=== PATIENT | male | born 1955 | race Caucasian/White ===

== ENCOUNTER 2017-05-02 09:56 | Emergency (ER) | payer OTHER ==
--- NOTE | 2017-05-02 12:56 | DIAGNOSTIC IMAGING REPORT ---
PROCEDURE: XR LUMBAR SPINE 2 OR 3 VIEWS INDICATION: LOWER BACK PAIN TECHNIQUE: Three views. COMPARISON: None. FINDINGS: Osseous structures and disc spaces are normal. No evidence of an acute process or fracture. IMPRESSION: 1. Negative lumbar spine.
--- NOTE | 2017-05-02 13:41 | ED ORDER SUMMARY ---
..... Patient: RM NORTH OrderSheet [facility] VisitID: [id number] [place] [address] 62y, M Registration Date/Time: 05/02/2017 ORDER SHEET Weight: 86.1 kg (stated) Allergies: No Known Drug Allergy GENERAL ORDERS: Lumbar Spine 2 or 3V Urgent (10:57 05/02/2017 Kol[place] CRAIN) (Ack 10:58 ARernandez) (14:14 Jayce R.N.) MEDICATION ORDERS: IV FLUIDS: Dilaudid IV 0.5 mg (HIGH ALERT MEDICATION, NOW) (10:57 05/02/2017 [place] CRAIN) (11:36 Michael R.N.) Valium IV 2 mg (HIGH ALERT MEDICATION, NOW) (13:58 05/02/2017 [place] CRAIN) (Ack 14:00 ASchmuck) (14:04 ASchmuck) Toradol IV 30 mg (NOW) (14:44 05/02/2017 [place] CRAIN) (14:59 Jayce R.N.) Valium IV 2 mg (HIGH ALERT MEDICATION, NOW) (14:44 05/02/2017 Kolby CRAIN) (14:59 Jayce R.N.) ORDER SHEET NOTES: [Electronically signed by Almas Reed R.N. (16:39 05/02/2017)] [Electronically signed by Jared Murillo MD (13:12 05/03/2017)] [Electronically locked/signed by Almas Reed R.N. (16:39 05/02/2017)]
--- NOTE | 2017-05-02 13:41 | ED CLINICAL REPORT ---
Clinical Report - Physicians/Mid Levels [facility] [address] [place] [address] 05/02/2017 9:56 [id number] Time Seen: 09:58. Arrived- By private vehicle. Historian- patient. HISTORY OF PRESENT ILLNESS Chief Complaint: BACK PAIN. It is described as being severe and in the area of the mid lumbar spine and lower lumbar spine. The quality is noted to be "pain" and similar to prior episodes. No radiation. Onset- several days ago and it is still present. It was abrupt in onset and has been constant. No bladder dysfunction, bowel dysfunction, sensory loss or motor loss. Patient notes the possibility of an injury. 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 Similar symptoms previously: Several times. REVIEW OF SYSTEMS No chills, fever, sweats, calf pain or chest pain. No cough, difficulty breathing, pedal edema, palpitations or abdominal pain. No constipation, diarrhea, nausea, vomiting or urinary problems. All systems otherwise negative, except as recorded above. PAST HISTORY Problems: A-Fib. Chronic Back Pain. Back Injury. Additional Surgeries: Appendectomy. Rotator Cuff Surgery. Medications: Atenolol Oral. Allergies: No Known Drug Allergy. SOCIAL HISTORY Never smoker. No alcohol use or drug use. He lives with spouse. FAMILY HISTORY Denies family medical history. ADDITIONAL NOTES The nursing notes have been reviewed. PHYSICAL EXAM Vital Signs: 05/02/2017 09:58 BP: 118/79. HR: 112. RR: 20. O2 saturation: 98%. Temp: 98.2 F. Pain level now: 0/10. Have been reviewed. Appearance: Alert. Eyes: Pupils equal, round and reactive to light. Neck: Normal inspection. Neck nontender. Painless ROM. CVS: Heart sounds normal. Respiratory: No respiratory distress. Breath sounds normal. Abdomen: No visible injury. Soft and nontender. Bowel sounds normal. No organomegaly. No mass. Back: Muscle spasm of the back. Severely limited ROM in the back- in the lumbar spine: decreased flexion, extension, right lateral bending, left lateral bending and rotation to the right and left. No vertebral point tenderness or soft tissue tenderness. Skin: Skin warm and dry. Normal skin color. Normal skin turgor. Extremities: Extremities exhibit normal ROM. No calf tenderness. Neuro: No motor deficit. No sensory deficit. LABS, X-RAYS, AND EKG X-Rays: LS spine series negative. PROGRESS AND PROCEDURES Discussed case with patient's primary care provider, (Dr. Ny at [facility]). Reviewed test results and need for additional work-up. Health care provider will see patient in office. Patient/family counseled. Old medical records reviewed. Disposition: Discharged. Condition: stable. CLINICAL IMPRESSION Acute lumbar strain. INSTRUCTIONS Apply ice. Don't apply ice directly to skin and don't use while asleep. No driving or operating machinery while taking sedating medication. Sedative medication was given during your visit. No lifting greater than 5 lbs, no bending or stooping or no prolonged sitting. Do not work until released. Warnings: GENERAL WARNINGS: Return or contact your physician immediately if your condition worsens or changes unexpectedly, if not improving as expected, or if other problems arise. Your Current Medications: CONTINUE TAKING THE FOLLOWING MEDICATIONS: Atenolol Oral. Prescription Medications: Hydrocodone/APAP 5mg/325mg: take 1 to 2 orally every 6 hours as needed for pain. Dispense fifteen (15). No refills. Ibuprofen 600mg tablets: take 1 tablet orally every 8 hours as needed for pain. Dispense thirty (30). No refills. Follow-up: Follow up with your doctor Friday in three days. Call for the next available appointment. Understanding of the discharge instructions verbalized by patient and family. (Electronically signed by Jared Murillo MD 05/03/2017 13:12)
--- NOTE | 2017-05-02 13:41 | ED NURSING NOTES ---
Clinical Report - Nurses [facility] [address] [place] [address] 05/02/2017 9:56 Patient: RM NORTH TRIAGE Triage time 09:55. Acuity: LEVEL 4. Chief Complaint: (Severe low back pain. Distant hx of back injury. Today he c/o 10/10 low back pain, unable to walk. He has spent the past 24 hours on the floor due to the pain that started 3 days ago.). SEPSIS SCREEN: Sepsis Screen. Negative (no infection suspected/documented). DANNA COMA SCORE: [place] Coma Scale: 15- eyes open spontaneously (4); best verbal response- oriented x 4 (5); best motor response- obeys commands (6). --10:07 Almas Reed R.N. 09:58 05/02/17. BP: 118/79 (regular adult cuff) taken on the left arm, while lying. HR: 112 (irregular). RR: 20. O2 saturation: 98% on room air. Temp: 98.2 F (oral). Pain level now: 0/10. --10:07 Almas Reed R.N. Weight: 86.1 kg stated. Height/Length: 68 inches Per Patient. BMI: 28.9. --10:05 Almas Reed R.N. Medications Atenolol Oral. --10:03 Almas Reed R.N. Allergies No Known Drug Allergy. --10:03 Almas Reed R.N. History Arrived by EMS, and ([facility]). Historian: EMS, patient and family. Treatment [employer]: (Fentanyl 100mcg @1025 today, IV SL). SOCIAL HX: Never smoker. No alcohol use or drug use. ABUSE ASSESSMENT: No report of abuse. --10:07 Almas Reed R.N. PROBLEMS: A-Fib. Chronic Back Pain. Back Injury. --10:05 Almas Reed R.N. ADDITIONAL SURGERIES: Appendectomy. Rotator Cuff Surgery. --10:05 Almas Reed R.N. Interventions To treatment room. --10:07 Almas Reed R.N. PHYSICAL ASSESSMENT To room via stretcher. ( limited AROM in his back and legs due to the LBP. Pt reports that he also had pain radiating into his left leg yesterday when he was walking.). GENERAL / NEURO / PSYCH: Alert. Oriented X 4. Appears in no acute distress. HEENT: Pupils equal, round and reactive to light. No facial asymmetry noted. Mucous membranes are pink. RESPIRATORY: Respirations not labored. Chest nontender. Breath sounds within normal limits. CVS: ( irregular HR (hx A-Fib)). Capillary refill less than 2 seconds. Pulses within normal limits. GI / : Abdomen soft and nontender and normal bowel sounds. SKIN: Skin is warm and dry. Normal skin turgor. --10:09 Almas Reed R.N. NURSING PROGRESS NOTES Head of bed elevated (Flat per pt request). Reassurance given. Two patient identifiers checked. Call light placed in reach. Side rails up x 2. Bed placed in lowest position. Brakes of bed on. Patient ready for evaluation- chart flagged. ( Pt's at the bedside). --10:09 Almas Reed R.N. 09:57 05/02/2017 Site #1 started prior to arrival by EMS via IV in the right antecubital space with an 18g angiocath. Saline lock flushed with 10 mL saline. --11:34 Almas Reed R.N. 11:31 05/02/2017 Dilaudid (HYDROmorphone HCl PF) IVP 0.5 mg given over 1 minute(s) via site #1. Allergies verified, confirmed 5 rights and sedative warning given to the patient and patient's family. IV patency established. IV site checked: no pain, redness, or swelling. IV flushed thoroughly pre- and post-medication administration. IVP given by RN. --11:36 Nati Leach R.N. 10:30 05/02/17. BP: 110/66. HR: 95. RR: 16. O2 saturation: 97% on room air. --13:41 Almas Reed R.N. 11:00 05/02/17. BP: 116/75. HR: 98. RR: 16. O2 saturation: 97% on room air. --13:41 Almas Reed R.N. 11:30 05/02/17. BP: 122/79. HR: 88. RR: 20. O2 saturation: 95% on room air. --13:42 Almas Reed R.N. 12:00 05/02/17. BP: 120/67. HR: 99. RR: 16. O2 saturation: 96% on room air. --13:43 Almas Reed R.N. 12:30 05/02/17. BP: 117/81. HR: 86. RR: 16. O2 saturation: 98% on room air. --13:43 Almas Reed R.N. 13:00 05/02/17. BP: 124/80. HR: 85. RR: 16. O2 saturation: 97% on room air. --13:44 Almas Reed R.N. 12:00 05/02/2017 Dilaudid IVP Response: no adverse reaction pain is improving. --16:38 Almas Reed R.N. 14:04 05/02/2017 Valium (Diazepam) IVP 2 mg given over 30 second(s) via site #1. Allergies verified, confirmed 5 rights and sedative warning given to the patient. IV patency established. IV site checked: no pain, redness, or swelling. IV flushed thoroughly pre- and post-medication administration. IVP given by RN. --14:04 Marilu Sol 14:30 05/02/2017 Valium IVP Response: no adverse reaction symptoms are the same. --16:38 Almas Reed R.N. 14:55 05/02/2017 Toradol IVP 30 mg given over 1 minute(s) via site #1. Allergies verified and confirmed 5 rights. IV patency established. IV site checked: no pain, redness, or swelling. IV flushed thoroughly pre- and post-medication administration. IVP given by RN. --14:59 Almas Reed R.N. 14:55 05/02/2017 Valium (Diazepam) IVP 2 mg given over 1 minute(s) via site #1. Allergies verified, confirmed 5 rights and sedative warning given to the patient. IV patency established. IV site checked: no pain, redness, or swelling. IV flushed thoroughly pre- and post-medication administration. IVP given by RN. --14:59 Almas Reed R.N. 15:30 05/02/2017 Toradol IVP Response: no adverse reaction pain is improving. Symptoms have improved the patient feels better. --16:38 Almas Reed R.N. 15:30 05/02/2017 Valium IVP Response: no adverse reaction pain is improving. Symptoms have improved the patient feels better. --16:38 Almas Reed R.N. DISPOSITION / DISCHARGE 16:03 05/02/2017 Site #1 removed upon discharge. Bandage applied. --16:37 Almas Reed R.N. Departure time: 1605. Condition at departure: improved and stable. No learning barriers present. Discharge instructions provided and reviewed with the patient. Reviewed warnings. Reviewed medication(s). Treatments reviewed. Reviewed referrals. Patient verbalized understanding. Written instructions provided in [place]. The patient was discharged by the physician. He was discharged home and accompanied by spouse. He left the Emergency Department ambulatory and via private vehicle. Spouse driving. --16:37 Almas Reed R.N. 15:45 05/02/17. BP: 107/71. HR: 75. RR: 16. O2 saturation: 100% on room air. Temp: 97.9 F (oral). Pain level now: 11/29. --16:37 Almas Reed R.N. Locked/Released at 05/02/2017 16:39 by Almas Reed R.N.
--- NOTE | 2017-05-02 13:41 | ED ORDER SUMMARY ---
..... Patient: RM NORTH OrderSheet [facility] VisitID: [id number] [place] [address] 62y, M Registration Date/Time: 05/02/2017 ORDER SHEET Weight: 86.1 kg (stated) Allergies: No Known Drug Allergy GENERAL ORDERS: Lumbar Spine 2 or 3V Urgent (10:57 05/02/2017 Kolby CRAIN) (Ack 10:58 AKernandez) (14:14 Jayce R.N.) MEDICATION ORDERS: IV FLUIDS: Dilaudid IV 0.5 mg (HIGH ALERT MEDICATION, NOW) (10:57 05/02/2017 Kol[place] CRAIN) (11:36 Michael R.N.) Valium IV 2 mg (HIGH ALERT MEDICATION, NOW) (13:58 05/02/2017 [place] CRAIN) (Ack 14:00 ASchmuck) (14:04 ASchmuck) Toradol IV 30 mg (NOW) (14:44 05/02/2017 [place] CRAIN) (14:59 Jayce R.N.) Valium IV 2 mg (HIGH ALERT MEDICATION, NOW) (14:44 05/02/2017 Kol[place] CRAIN) (14:59 Jayce R.N.) ORDER SHEET NOTES: [Electronically signed by Almas Reed R.N. (16:39 05/02/2017)] [Electronically signed by Jared Murillo MD (13:12 05/03/2017)] [Electronically locked/signed by Almas Reed R.N. (16:39 05/02/2017)]
--- NOTE | 2017-05-02 13:41 | ED CLINICAL REPORT ---
Clinical Report - Physicians/Mid Levels [facility] [address] [place] [address] 05/02/2017 9:56 [id number] Time Seen: 09:58. Arrived- By private vehicle. Historian- patient. HISTORY OF PRESENT ILLNESS Chief Complaint: BACK PAIN. It is described as being severe and in the area of the mid lumbar spine and lower lumbar spine. The quality is noted to be "pain" and similar to prior episodes. No radiation. Onset- several days ago and it is still present. It was abrupt in onset and has been constant. No bladder dysfunction, bowel dysfunction, sensory loss or motor loss. Patient notes the possibility of an injury. 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 Similar symptoms previously: Several times. REVIEW OF SYSTEMS No chills, fever, sweats, calf pain or chest pain. No cough, difficulty breathing, pedal edema, palpitations or abdominal pain. No constipation, diarrhea, nausea, vomiting or urinary problems. All systems otherwise negative, except as recorded above. PAST HISTORY Problems: A-Fib. Chronic Back Pain. Back Injury. Additional Surgeries: Appendectomy. Rotator Cuff Surgery. Medications: Atenolol Oral. Allergies: No Known Drug Allergy. SOCIAL HISTORY Never smoker. No alcohol use or drug use. He lives with spouse. FAMILY HISTORY Denies family medical history. ADDITIONAL NOTES The nursing notes have been reviewed. PHYSICAL EXAM Vital Signs: 05/02/2017 09:58 BP: 118/79. HR: 112. RR: 20. O2 saturation: 98%. Temp: 98.2 F. Pain level now: 0/10. Have been reviewed. Appearance: Alert. Eyes: Pupils equal, round and reactive to light. Neck: Normal inspection. Neck nontender. Painless ROM. CVS: Heart sounds normal. Respiratory: No respiratory distress. Breath sounds normal. Abdomen: No visible injury. Soft and nontender. Bowel sounds normal. No organomegaly. No mass. Back: Muscle spasm of the back. Severely limited ROM in the back- in the lumbar spine: decreased flexion, extension, right lateral bending, left lateral bending and rotation to the right and left. No vertebral point tenderness or soft tissue tenderness. Skin: Skin warm and dry. Normal skin color. Normal skin turgor. Extremities: Extremities exhibit normal ROM. No calf tenderness. Neuro: No motor deficit. No sensory deficit. LABS, X-RAYS, AND EKG X-Rays: LS spine series negative. PROGRESS AND PROCEDURES Discussed case with patient's primary care provider, (Dr. Ny at [facility]). Reviewed test results and need for additional work-up. Health care provider will see patient in office. Patient/family counseled. Old medical records reviewed. Disposition: Discharged. Condition: stable. CLINICAL IMPRESSION Acute lumbar strain. INSTRUCTIONS Apply ice. Don't apply ice directly to skin and don't use while asleep. No driving or operating machinery while taking sedating medication. Sedative medication was given during your visit. No lifting greater than 5 lbs, no bending or stooping or no prolonged sitting. Do not work until released. Warnings: GENERAL WARNINGS: Return or contact your physician immediately if your condition worsens or changes unexpectedly, if not improving as expected, or if other problems arise. Your Current Medications: CONTINUE TAKING THE FOLLOWING MEDICATIONS: Atenolol Oral. Prescription Medications: Hydrocodone/APAP 5mg/325mg: take 1 to 2 orally every 6 hours as needed for pain. Dispense fifteen (15). No refills. Ibuprofen 600mg tablets: take 1 tablet orally every 8 hours as needed for pain. Dispense thirty (30). No refills. Follow-up: Follow up with your doctor Friday in three days. Call for the next available appointment. Understanding of the discharge instructions verbalized by patient and family. (Electronically signed by Jared Murillo MD 05/03/2017 13:12)
--- NOTE | 2017-05-03 13:12 | ED MED RECONCILIATION SUMMARY ---
Patient: RM NORTH Medication Reconciliation Report [facility] VisitID: [id number] [address] [place] [address] 62y, M Registration Date/Time: 05/02/2017 Weight: 86.1 kg Height/Length: 68 in. BMI: 28.9 ALLERGIES: No Known Drug Allergy The patient's Home Medications are listed below: CONTINUE TAKING THE FOLLOWING MEDICATIONS: Atenolol Oral The source(s) of the original Home Medication information: Not obtained. The following Medications were given to the patient in the Emergency Department: Dilaudid [IVP] IVP 0.5 mg, administered: 05/02/2017 11:31:00 AM Valium [IVP] IVP 2 mg, administered: 05/02/2017 2:04:00 PM Toradol [IVP] IVP 30 mg, administered: 05/02/2017 2:55:00 PM Valium [IVP] IVP 2 mg, administered: 05/02/2017 2:55:00 PM The following Medications were prescribed to the patient: Hydrocodone/APAP 5mg/325mg: take 1 to 2 orally every 6 hours as needed for pain. Dispense fifteen (15). No refills. -- Jared Murillo MD Ibuprofen 600mg tablets: take 1 tablet orally every 8 hours as needed for pain. Dispense thirty (30). No refills. -- Jared Murillo MD
--- NOTE | 2017-05-03 13:12 | ED MED RECONCILIATION SUMMARY ---
Patient: RM NORTH Medication Reconciliation Report [facility] VisitID: [id number] [address] [place] [place] [address] 62y, M Registration Date/Time: 05/02/2017 Weight: 86.1 kg Height/Length: 68 in. BMI: 28.9 ALLERGIES: No Known Drug Allergy The patient's Home Medications are listed below: CONTINUE TAKING THE FOLLOWING MEDICATIONS: Atenolol Oral The source(s) of the original Home Medication information: Not obtained. The following Medications were given to the patient in the Emergency Department: Dilaudid [IVP] IVP 0.5 mg, administered: 05/02/2017 11:31:00 AM Valium [IVP] IVP 2 mg, administered: 05/02/2017 2:04:00 PM Toradol [IVP] IVP 30 mg, administered: 05/02/2017 2:55:00 PM Valium [IVP] IVP 2 mg, administered: 05/02/2017 2:55:00 PM The following Medications were prescribed to the patient: Hydrocodone/APAP 5mg/325mg: take 1 to 2 orally every 6 hours as needed for pain. Dispense fifteen (15). No refills. -- Jared Murillo MD Ibuprofen 600mg tablets: take 1 tablet orally every 8 hours as needed for pain. Dispense thirty (30). No refills. -- Jared Murillo MD
--- NOTE | 2017-05-03 13:12 | ED DISCHARGE INSTRUCTIONS ---
Patient: RM NORTH General Instructions [facility] VisitID: [id number] [place] [address] 62y, M Registration Date/Time: 05/02/2017 Acute lumbar strain. INSTRUCTIONS Apply ice. Don't apply ice directly to skin and don't use while asleep. No driving or operating machinery while taking sedating medication. Sedative medication was given during your visit. No lifting greater than 5 lbs, no bending or stooping or no prolonged sitting. Do not work until released. Warnings: GENERAL WARNINGS: Return or contact your physician immediately if your condition worsens or changes unexpectedly, if not improving as expected, or if other problems arise. Your Current Medications: CONTINUE TAKING THE FOLLOWING MEDICATIONS: Atenolol Oral. Prescription Medications: Hydrocodone/APAP 5mg/325mg: take 1 to 2 orally every 6 hours as needed for pain. Dispense fifteen (15). No refills. Ibuprofen 600mg tablets: take 1 tablet orally every 8 hours as needed for pain. Dispense thirty (30). No refills. Follow-up: Follow up with your doctor Friday in three days. Call for the next available appointment. Understanding of the discharge instructions verbalized by patient and family. ADDITIONAL INFORMATION Back Pain [Acute Or Chronic] Back pain is usually caused by an injury to the muscles or ligaments of the spine. Sometimes the disks that separate each bone in the spine may bulge and cause pain by pressing on a nearby nerve. Back pain may also appear after a sudden twisting/bending force (such as in a car accident), after a simple awkward movement, or lifting something heavy with poor body positioning. In either case, muscle spasm is often present and adds to the pain. Acute back pain usually gets better in one to two weeks. Back pain related to disk disease, arthritis in the spinal joints or spinal stenosis (narrowing of the spinal canal) can become chronic and last for months or years. Unless you had a physical injury (for example, a car accident or fall) X-rays are usually not ordered for the initial evaluation of back pain. If pain continues and does not respond to medical treatment, x-rays and other tests may be performed at a later time. Home Care: You may need to stay in bed the first few days. But, as soon as possible, begin sitting or walking to avoid problems with prolonged bed rest (muscle weakness, worsening back stiffness and pain, blood clots in the legs). When in bed, try to find a position of comfort. A firm mattress is best. Try lying flat on your back with pillows under your knees. You can also try lying on your side with your knees bent up towards your chest and a pillow between your knees. Avoid prolonged sitting. This puts more stress on the lower back than standing or walking. During the first two days after injury, apply an ICE PACK to the painful area for 20 minutes every 2-4 hours. This will reduce swelling and pain. HEAT (hot shower, hot bath or heating pad) works well for muscle spasm. You can start with ice, then switch to heat after two days. Some patients feel best alternating ice and heat treatments. Use the one method that feels the best to you. You may use acetaminophen (Tylenol) or ibuprofen (Motrin, Advil) to control pain, unless another pain medicine was prescribed. [NOTE: If you have chronic liver or kidney disease or ever had a stomach ulcer or GI bleeding, talk with your doctor before using these medicines.] Be aware of safe lifting methods and do not lift anything over 15 pounds until all the pain is gone. Follow Up with your doctor or this facility if your symptoms do not start to improve after one week. Physical therapy may be needed. [NOTE: If X-rays were taken, they will be reviewed by a radiologist. You will be notified of any new findings that may affect your care.] Get Prompt Medical Attention if any of the following occur: Pain becomes worse or spreads to your legs Weakness or numbness in one or both legs Loss of bowel or bladder control Numbness in the groin or genital area Hydrocodone Bitartrate, Acetaminophen Oral tablet What is this medicine? ACETAMINOPHEN; HYDROCODONE (a set a SABRINA martha fen; sanjay droe KOE done) is a pain reliever. It is used to treat mild to moderate pain. How should I use this medicine? Take this medicine by mouth. Swallow it with a full glass of water. Follow the directions on the prescription label. If the medicine upsets your stomach, take the medicine with food or milk. Do not take more than you are told to take. Talk to your cargo station worker regarding the use of this medicine in children. This medicine is not approved for use in children. What side effects may I notice from receiving this medicine? Side effects that you should report to your doctor or health director of primary care as soon as possible: allergic reactions like skin rash, itching or hives, swelling of the face, lips, or tongue breathing problems confusion feeling faint or lightheaded, falls stomach pain yellowing of the eyes or skin Side effects that usually do not require medical attention (report to your doctor or health director of primary care if they continue or are bothersome): nausea, vomiting stomach upset What may interact with this medicine? alcohol antihistamines isoniazid medicines for depression, anxiety, or psychotic disturbances medicines for sleep muscle relaxants naltrexone narcotic medicines (opiates) for pain phenobarbital ritonavir tramadol What if I miss a dose? If you miss a dose, take it as soon as you can. If it is almost time for your next dose, take only that dose. Do not take double or extra doses. Where should I keep my medicine? Keep out of the reach of children. This medicine can be abused. Keep your medicine in a safe place to protect it from theft. Do not share this medicine with anyone. Selling or giving away this medicine is dangerous and against the law. Store at room temperature between 15 and 30 degrees C (59 and 86 degrees F). Protect from light. Keep container tightly closed. Throw away any unused medicine after the expiration date. Discard unused medicine and used packaging carefully. Pets and children can be harmed if they find used or lost packages. What should I tell my health care provider before I take this medicine? They need to know if you have any of these conditions: brain tumor Crohn's disease, inflammatory bowel disease, or ulcerative colitis drink more than 3 alcohol-containing drinks per day drug abuse or addiction head injury heart or circulation problems kidney disease or problems going to the bathroom liver disease lung disease, asthma, or breathing problems an unusual or allergic reaction to acetaminophen, hydrocodone, other opioid analgesics, other medicines, foods, dyes, or preservatives or trying to get breast-feeding What should I watch for while using this medicine? Tell your doctor or health director of primary care if your pain does not go away, if it gets worse, or if you have new or a different type of pain. You may develop tolerance to the medicine. Tolerance means that you will need a higher dose of the medicine for pain relief. Tolerance is normal and is expected if you take the medicine for a long time. Do not suddenly stop taking your medicine because you may develop a severe reaction. Your body becomes used to the medicine. This does NOT mean you are addicted. Addiction is a behavior related to getting and using a drug for a non-medical reason. If you have pain, you have a medical reason to take pain medicine. Your doctor will tell you how much medicine to take. If your doctor wants you to stop the medicine, the dose will be slowly lowered over time to avoid any side effects. You may get drowsy or dizzy when you first start taking the medicine or change doses. Do not drive, use machinery, or do anything that may be dangerous until you know how the medicine affects you. Stand or sit up slowly. There are different types of narcotic medicines (opiates) for pain. If you take more than one type at the same time, you may have more side effects. Give your health care provider a list of all medicines you use. Your doctor will tell you how much medicine to take. Do not take more medicine than directed. Call emergency for help if you have problems breathing. The medicine will cause constipation. Try to have a bowel movement at least every 2 to 3 days. If you do not have a bowel movement for 3 days, call your doctor or health director of primary care. Too much acetaminophen can be very dangerous. Do not take Tylenol (acetaminophen) or medicines that contain acetaminophen with this medicine. Many non-prescription medicines contain acetaminophen. Always read the labels carefully. Ibuprofen Oral tablet What is this medicine? IBUPROFEN (eye BYOO proe fen) is a non-steroidal anti-inflammatory drug (NSAID). It is used for dental pain, fever, headaches or migraines, osteoarthritis, rheumatoid arthritis, or painful monthly periods. It can also relieve minor aches and pains caused by a cold, flu, or sore throat. How should I use this medicine? Take this medicine by mouth with a glass of water. Follow the directions on the prescription label. Take this medicine with food if your stomach gets upset. Try to not lie down for at least 10 minutes after you take the medicine. Take your medicine at regular intervals. Do not take your medicine more often than directed. A special MedGuide will be given to you by the pharmacist with each prescription and refill. Be sure to read this information carefully each time. Talk to your cargo station worker regarding the use of this medicine in children. Special care may be needed. What side effects may I notice from receiving this medicine? Side effects that you should report to your doctor or health director of primary care as soon as possible: allergic reactions like skin rash, itching or hives, swelling of the face, lips, or tongue black or bloody stools, blood in the urine or in vomit breathing problems changes in vision chest pain general ill feeling or flu-like symptoms nausea or vomiting redness, blistering, peeling or loosening of the skin, including inside the mouth slurred speech or weakness on one side of the body stomach pain unexplained weight gain or swelling unusually weak or tired yellowing of eyes or skin Side effects that usually do not require medical attention (report to your doctor or health director of primary care if they continue or are bothersome): constipation or diarrhea dizziness gas or heartburn stomach upset What may interact with this medicine? Do not take this medicine with any of the following medications: cidofovir ketorolac methotrexate pemetrexed This medicine may also interact with the following medications: alcohol aspirin diuretics lithium other drugs for inflammation like prednisone warfarin What if I miss a dose? If you miss a dose, take it as soon as you can. If it is almost time for your next dose, take only that dose. Do not take double or extra doses. Where should I keep my medicine? Keep out of the reach of children. Store at room temperature between 15 and 30 degrees C (59 and 86 degrees F). Keep container tightly closed. Throw away any unused medicine after the expiration date. What should I tell my health care provider before I take this medicine? They need to know if you have any of these conditions: asthma cigarette smoker drink more than 3 alcohol containing drinks a day heart disease or circulation problems such as heart failure or leg edema (fluid retention) high blood pressure kidney disease liver disease stomach bleeding or ulcers an unusual or allergic reaction to ibuprofen, aspirin, other NSAIDS, other medicines, foods, dyes, or preservatives or trying to get breast-feeding What should I watch for while using this medicine? Tell your doctor or healthcare professional if your symptoms do not start to get better or if they get worse. This medicine does not prevent heart attack or stroke. In fact, this medicine may increase the chance of a heart attack or stroke. The chance may increase with longer use of this medicine and in people who have heart disease. If you take aspirin to prevent heart attack or stroke, talk with your doctor or health director of primary care. Do not take other medicines that contain aspirin, ibuprofen, or naproxen with this medicine. Side effects such as stomach upset, nausea, or ulcers may be more likely to occur. Many medicines available without a prescription should not be taken with this medicine. This medicine can cause ulcers and bleeding in the stomach and intestines at any time during treatment. Ulcers and bleeding can happen without warning symptoms and can cause . To reduce your risk, do not smoke cigarettes or drink alcohol while you are taking this medicine. You may get drowsy or dizzy. Do not drive, use machinery, or do anything that needs mental alertness until you know how this medicine affects you. Do not stand or sit up quickly, especially if you are an older patient. This reduces the risk of dizzy or fainting spells. This medicine can cause you to bleed more easily. Try to avoid damage to your teeth and gums when you brush or floss your teeth. You have been given the following additional information: Back Pain (Acute Or Chronic) Hydrocodone Bitartrate, Acetaminophen Oral tablet Ibuprofen Oral tablet No driving or operating machinery while taking sedating medication. Sedative medication was given during your visit. No lifting greater than 5 lbs, no bending or stooping or no prolonged sitting. Do not work until released. (Electronically signed by Jared Murillo MD 05/03/2017 13:12)
--- NOTE | 2017-05-03 13:12 | ED MAR SUMMARY ---
..... Medication Administration Record [facility] [address] [place] [address] Patient: RM NORTH Visit ID: [id number] 62y, M Weight: 86.1 kg Height/Length: 68 in BMI: 28.9 ALLERGIES: No Known Drug Allergy Given 11:31 05/02/2017 Nati Leach R.N. Medication Administered: DILAUDID [IVP] (HYDROMORPHONE HCL PF), Dose: 0.5 mg IVP over 1 minute(s), Site: #1 right AC. Medication Ordered: Dilaudid IV 0.5 mg (HIGH ALERT MEDICATION, NOW). Given 14:05/02/2017 Marilu Sol, Medication Administered: VALIUM [IVP] (DIAZEPAM), Dose: 2 mg IVP over 30 second(s), Site: #1 right AC. Medication Ordered: Valium IV 2 mg (HIGH ALERT MEDICATION, NOW). Given :05/02/2017 Almas Reed R.N. Medication Administered: TORADOL [IVP], Dose: 30 mg IVP over 1 minute(s), Site: #1 right AC. Medication Ordered: Toradol IV 30 mg (NOW). Given :05/02/2017 Almas Reed R.N. Medication Administered: VALIUM [IVP] (DIAZEPAM), Dose: 2 mg IVP over 1 minute(s), Site: #1 right AC. Medication Ordered: Valium IV 2 mg (HIGH ALERT MEDICATION, NOW).
--- NOTE | 2017-05-03 13:12 | ED MAR SUMMARY ---
..... Medication Administration Record [facility] [address] [place] [address] Patient: RM NORTH Visit ID: [id number] 62y, M Weight: 86.1 kg Height/Length: 68 in BMI: 28.9 ALLERGIES: No Known Drug Allergy Given 11:31 05/02/2017 Nati Leach R.N. Medication Administered: DILAUDID [IVP] (HYDROMORPHONE HCL PF), Dose: 0.5 mg IVP over 1 minute(s), Site: #1 right AC. Medication Ordered: Dilaudid IV 0.5 mg (HIGH ALERT MEDICATION, NOW). Given 14:05/02/2017 Marilu Slo, Medication Administered: VALIUM [IVP] (DIAZEPAM), Dose: 2 mg IVP over 30 second(s), Site: #1 right AC. Medication Ordered: Valium IV 2 mg (HIGH ALERT MEDICATION, NOW). Given :05/02/2017 Almas Reed R.N. Medication Administered: TORADOL [IVP], Dose: 30 mg IVP over 1 minute(s), Site: #1 right AC. Medication Ordered: Toradol IV 30 mg (NOW). Given :05/02/2017 Almas Reed R.N. Medication Administered: VALIUM [IVP] (DIAZEPAM), Dose: 2 mg IVP over 1 minute(s), Site: #1 right AC. Medication Ordered: Valium IV 2 mg (HIGH ALERT MEDICATION, NOW).
== END 2017-05-02 16:05 | disposition home or self-care (01) ==
LOC: ED SRH 09:56
DX: S39.012A Strain of muscle, fascia and tendon of lower back, initial encounter (principal); X50.0XXA Overexertion from strenuous movement or load, initial encounter; Y93.89 Activity, other specified; Y92.89 Other specified places as the place of occurrence of the external cause; Y99.8 Other external cause status; I48.91 Unspecified atrial fibrillation